=== PATIENT | female | born 2000 | race Caucasian/White ===

== ENCOUNTER 2021-08-29 19:30 | Outpatient (CLI) | payer OTHER | END 2021-08-29 19:31 | disposition home or self-care (01) | LOC: SLEEPLAB 19:30 | PROVIDERS: ATTEND Family Medicine | DX: G47.10 Hypersomnia, unspecified (principal); G47.61 Periodic limb movement disorder; G47.33 Obstructive sleep apnea (adult) (pediatric); R51.9 Headache, unspecified | CPT/HCPCS: 95810 ==